=== PATIENT | female | born 1955 | race Two or more races ===

== ENCOUNTER → 2018-11-13 | Outpatient (CLI) | payer OTHER | END | disposition home or self-care (01) | LOC: RAD 16:15 | DX: M81.0 Age-related osteoporosis without current pathological fracture (principal) ==

== ENCOUNTER 2019-02-01 11:47 | Outpatient (CLI) | payer OTHER | END 2019-02-01 11:51 | disposition home or self-care (01) | LOC: MRI 11:47 | DX: M51.36 Other intervertebral disc degeneration, lumbar region (principal); S32.009A Unspecified fracture of unspecified lumbar vertebra, initial encounter for closed fracture | CPT/HCPCS: 72148 ==

== ENCOUNTER → 2019-03-23 | Outpatient (CLI) | payer OTHER | END | disposition home or self-care (01) | LOC: SONOGRAMA 14:07 | DX: M05.79 Rheumatoid arthritis with rheumatoid factor of multiple sites without organ or systems involvement (principal) ==

== ENCOUNTER 2019-09-11 12:49 | Outpatient (CLI) | payer OTHER | END 2019-09-11 13:24 | disposition home or self-care (01) | LOC: RAD 12:49 → MRI 13:15 → RAD 13:24 → MAMO-SONO 13:45 | DX: M48.02 Spinal stenosis, cervical region (principal); M50.30 Other cervical disc degeneration, unspecified cervical region; M51.34 Other intervertebral disc degeneration, thoracic region; M51.37 Other intervertebral disc degeneration, lumbosacral region; M16.0 Bilateral primary osteoarthritis of hip; Z12.31 Encounter for screening mammogram for malignant neoplasm of breast; N64.4 Mastodynia | CPT/HCPCS: 72141 ==

== ENCOUNTER 2021-06-22 14:30 | Outpatient (CLI) | payer OTHER | END 2021-06-22 14:39 | disposition home or self-care (01) | LOC: RAD 14:30 | DX: M19.042 Primary osteoarthritis, left hand (principal) ==

== ENCOUNTER 2021-09-10 14:21 | Outpatient (CLI) | payer OTHER | END 2021-09-10 14:29 | disposition home or self-care (01) | LOC: MAMO-SONO 14:21 | DX: Z12.31 Encounter for screening mammogram for malignant neoplasm of breast (principal); N63.10 Unspecified lump in the right breast, unspecified quadrant ==